=== PATIENT | female | born 1975 | race African-American/Black ===

== ENCOUNTER 2018-01-22 08:20 | Emergency (ER) | payer SELFPAY ==
[~2018-01-22] VITALS: Ht 160 cm; Wt 86.0 kg
[2018-01-22 08:23] VITALS: BP 131/80
[2018-01-22] MEDS ORDERED: TETANUS, DIPHTHERIA, PERTUSSIS VAC/PF 0.5ML (>7YR OLD) IM ONE (09:15)
[2018-01-22] MEDS ORDERED: BACITRACIN ZINC OINT UDPKT TOP ONE (09:15)
[2018-01-22] MEDS ORDERED: FAMOTIDINE 20MG TABLET PO ONE (09:15)
[2018-01-22] MEDS ORDERED: DIPHENHYDRAMINE 25MG CAPSULE PO ONE (09:15)
== END 2018-01-22 09:46 | disposition home or self-care (01) ==
LOC: ER 08:20
DX: T78.49XA Other allergy, initial encounter (principal); T21.11XA Burn of first degree of chest wall, initial encounter; X58.XXXA Exposure to other specified factors, initial encounter; X10.2XXA Contact with fats and cooking oils, initial encounter; Y93.89 Activity, other specified; Y92.010 Kitchen of single-family (private) house as the place of occurrence of the external cause
CPT/HCPCS: 16000; 16020; 90471; 90715; 99284; Q0163